=== PATIENT | male | born 1985 | race African-American/Black ===

== ENCOUNTER → 2017-04-11 10:23 | Outpatient (CLI) | payer BC ==
[2017-04-11 11:18] LABS: THYROID STIMULATING HORMONE 1.27 uIU/mL (0.36-3.74)
[2017-04-13 14:08] LABS: TESTOSTERONE - FREE 9.7 pg/mL (8.7-25.1); TESTOSTERONE - SERUM 501 ng/dL (264-916)
== END | disposition home or self-care (01) ==
LOC: D.LAB 10:23
PROVIDERS: Urology
DX: E29.1 Testicular hypofunction (principal)